=== PATIENT | female | born 1945 | race Hispanic/Latino ===

== ENCOUNTER 2018-02-22 09:51 | Emergency (ER) | payer OTHER ==
[~2018-02-22] VITALS: Ht 160 cm; Wt 73.5 kg
[~2018-02-22 09:51] MED LIST: ADVAIR 250-501 EACH PO; ALDACTONE50 MG PO; AMITRIPTYLINE H10 MG PO; ASPIRIN EC81 MG PO; CEFDINIR300 MG PO; CELEXA20 MG PO; CENTRUM SILVER1 EAC3 PO; CIPRO250 MG PO; CIPRO500 MG PO; DIGOXIN125 MCG PO; FUROSEMIDE40 MG PO; GLUCOPHAGE1000 MG PO; LANSOPRAZOLE30 MG PO; LANTUS100 UNITS/ SQ; LASIX20 MG PO; LASIX40 MG PO; LEVAQUIN500 MG PO; LOPRESSOR50 MG PO; NEURONTIN300 MG PO; NOVOLOG100 UNIT/1 SQ; OMEPRAZOLE20 MG PO; PANTOPRAZOLE SO40 MG PO; POTASSIUM GLUC500 GM PO; PRAVASTATIN SOD40 MG PO; PROAIR HFA INH8.5 GM PO; PROCHLORPERAZIN10 MG PO; RANITIDINE HCL150 M1 PO
[2018-02-22] MEDS ORDERED: SODIUM CHLORIDE 0.9% 500ML 500 ML IV ONE (10:15)
[2018-02-22] MEDS ORDERED: MECLIZINE HCL 12.5 MG TAB PO ONE (10:15)
[2018-02-22 10:39] LABS: BILIRUBIN,URINE NEGATIVE (NEGATIVE); CLARITY,URINE CLEAR (CLEAR); COLOR,URINE YELLOW (YELLOW); KETONES,URINE NEGATIVE (NEGATIVE); LEUKOCYTE ESTERASE ,URINE NEGATIVE (NEGATIVE); NITRITE,URINE NEGATIVE (NEGATIVE); PROTEIN,URINE DIPSTICK NEGATIVE (NEGATIVE); URINE UROBILINOGEN 0.2 mg/dL (0.2 - 1)
[2018-02-22 10:50] LABS: BACTERIA,URINE FEW /HPF; EPITHELIAL CELLS,URINE FEW /LPF; RBC,URINE 0-5 /HPF (0-5); WBC,URINE (MAN) 0-5 /HPF (0-5)
[2018-02-22 10:57] LABS: BASOPHILS % 0.3 % (0.0-1.0); EOSINOPHILS # (AUTO) 0.2 (0.0-0.4); EOSINOPHILS % 2.6 % (0.0-6.0); HEMATOCRIT 35.7 % (34.2-44.1); LYMPHOCYTES # (AUTO) 1.4 (1.0-3.2); MEAN CORPUSCULAR HEMOGLOBIN 29.1 pg (28-32); MEAN CORPUSCULAR HGB CONC 30.8 g/dL (31-35); MEAN CORPUSCULAR VOLUME 94.4 fL (81-99); MONOCYTES # (AUTO) 0.4 (0.2-0.8); MONOCYTES % 6.6 % (4.4-11.3); NEUTROPHILS % 67.3 % (38.7-80.0); PLATELET COUNT 68 x10e3/uL (140-360); RED BLOOD COUNT 3.78 x10e6/uL (3.6-5.1)
[2018-02-22 11:28] LABS: ALBUMIN 3.3 g/dL (3.5-5.0); ALBUMIN/GLOBULIN RATIO 0.8 (0.8-2.0); ANION GAP 16.1 mmol/L (8-16); CALCIUM 9.3 mg/dL (8.4-10.2); CREATININE, SERUM 1.44 mg/dL (0.57-1.11); POTASSIUM 5.1 mmol/L (3.5-5.1)
[2018-02-22 11:34] LABS: CREATINE KINASE MB 3.1 ng/mL (0-5.0)
--- NOTE | 2018-02-22 11:35 | Diagnostic Imaging Report ---
History: Dizziness Comparison studies: None Technique: Axial images were obtained from the skull base to the vertex. Coronal and sagittal reconstructions obtained from the axial data. Findings: Scalp/skull: No abnormalities. No fractures, blastic or lytic lesions. Extra-axial spaces: No masses. No fluid collections. Brain sulci: Appropriate for age. Ventricles: Normal in size and configuration. No hydrocephalus. Parenchyma: No abnormal densities. No masses, hemorrhage, acute or chronic cortical vascular insults. Sellar/suprasellar region: No abnormalities Craniocervical junction: Patent foramen magnum. No Chiari one malformation. Atherosclerotic calcifications of the bilateral carotid siphons IMPRESSION: No acute abnormalities . Signed by: DR Clif Lim M.D. on 02/22/2018 11:31 AM
== END 2018-02-22 14:22 | disposition home or self-care (01) ==
LOC: ER 09:51
DX: R42 Dizziness and giddiness (principal); R11.0 Nausea; R53.1 Weakness; R51 Headache; H93.12 Tinnitus, left ear; E11.9 Type 2 diabetes mellitus without complications
CPT/HCPCS: 36415; 70450; 80053; 81001; 82550; 82553; 84484; 85025; 93005; 99284; J7040